=== PATIENT | female | born 1945 | race African-American/Black ===

== ENCOUNTER → 2016-12-10 | Outpatient (CLI) | payer MEDICARE, MEDICAID ==
[~2016-12-10] MED LIST: ACITRETIN PO; ALLO100T PO; ASPI-1159 PO; DICL50TA9 PO; HYDR-3927 PO; HYDR453.4 TP; HYDROCORTISONE; LORA10TA7 PO; LOSA100T14 PO; METO25TA6 PO; P20 PO; SERT25TA74 PO; SIMV40TA5 PO; SPIR25TA4 PO; TRAM50TA3 PO; TRAZ-129 PO; TRIAMCINOLONE; [UNRECOGNIZED DRUG - OTHER]
== END | disposition home or self-care (01) ==
LOC: MAMMO 10:26
PROVIDERS: ATTEND Specialist
DX: Z12.31 Encounter for screening mammogram for malignant neoplasm of breast (principal)
CPT/HCPCS: G0202